=== PATIENT | female | born 1955 | race Caucasian/White ===

== ENCOUNTER 2022-02-23 10:14 | Outpatient (REF) | payer BC, SELFPAY ==
[2022-02-23 11:17] LABS: MANUAL DIFF FLAG NO
[2022-02-23 11:33] LABS: Basophils Absolute Auto 0.1 X10*3/uL (0.0-0.2); Basophils Percent Auto 0.8 % (0-2); Eosinophils Absolute Auto 0.2 X10*3/uL (0.0-0.4); Eosinophils Percent Auto 2.3 % (0-4); Hematocrit 42.4 % (37.0-47.0); Hemoglobin 14.2 g/dl (12.0-16.0); Imm Gran Abs Auto 0.02 X10*3/uL (0.00-0.03); Imm Gran Pct Auto 0.3 % (0.0-0.4); Lymphocytes Absolute Auto 2.2 X10*3/uL (1.2-4.9); Lymphocytes Percent Auto 30.6 % (20-40); Mean Corpuscular HGB Conc 33.5 g/dl (31.0-35.0); Mean Corpuscular Hemoglobin 29.4 pg (27.0-33.0); Mean Corpuscular Volume 87.8 fL (80.0-98.0); Mean Platelet Volume 11.3 fL (9.4-12.3); Monocytes Absolute Auto 0.5 X10*3/uL (0.1-1.2); Monocytes Percent Auto 6.5 % (2-11); Neutrophils Absolute Auto 4.4 x10*3/uL (2.0-8.3); Neutrophils Percent Auto 59.5 % (45-73); Platelet Count 265 X10*3/uL (160-400); Red Blood Count 4.83 X10*6/uL (4.20-5.50); Red Cell Distribution Width 12.4 % (11.0-16.0); White Blood Count 7.3 X10*3/uL (4.8-10.8)
[2022-02-23 12:17] LABS: Alanine Aminotransferase 14 U/L (0-31); Albumin Level 3.9 g/dL (3.5-5.0); Alkaline Phosphatase 86 U/L (39-117); Anion Gap 16 (12-20); Aspartate Amino Transferase 15 U/L (5-31); Bilirubin Total 0.9 mg/dL (0.0-1.0); Blood Urea Nitrogen 13 mg/dL (9-16); Carbon Dioxide 23 mmol/L (22-29); Chloride 106 mmol/L (96-108); Cholesterol 196 mg/dL; Estimated Glomerular Filt Rate > 60; Glucose Fasting 98 mg/dL (60-99); HDL Cholesterol 49 mg/dL; LDL Cholesterol Calculated 110 mg/dl; Potassium 4.5 mmol/L (3.3-5.1); Sodium 140 mmol/L (135-145); TSH reflex Free T4 2.07 uIU/mL (0.32-4.0); Total Protein 6.4 g/dL (6.5-8.0); Triglycerides 187 mg/dL; Vitamin D 25-OH Total 15.6 ng/mL (>30)
[2022-02-23 12:22] LABS: Folate 10.7 ng/mL (> or = 4.0); Vitamin B12 204 pg/mL (200-900)
== END 2022-02-23 10:15 | disposition home or self-care (01) ==
LOC: HO.10HDL 10:14
PROVIDERS: Visit Provider Nurse Practitioner Family
DX: Z76.89 Persons encountering health services in other specified circumstances (principal)
CPT/HCPCS: 36415; 80053; 80061; 82306; 82607; 82746; 84443; 85025

== ENCOUNTER 2022-06-07 11:52 | Day surgery (SDC) | payer MEDICARE, SELFPAY ==
[2022-06-01 13:55] VITALS: BMI 32.2
[2022-06-04 14:07] VITALS: BMI 29.2
--- NOTE | 2022-06-06 10:52 | HO.ANESPROP2 ---
Documented by User: Darshana Bonilla NP 06/06/22 10:54 HPI - Anesthesia Eval Consult details Narrative: 67yo F for Colonoscopy PMFSH Active Problems Active Problems: All Active Problems (Updated 04/24/22 @ 10:52 by JACKIE Kramer) Obesity (BMI 30-39.9) (Acute) Adult general medical exam (Acute) Rhinitis (Acute) Low vitamin D level (Acute) Screening for colon cancer (Acute) Post-COVID syndrome (Acute) Urinary incontinence (Acute) Prolapse of female pelvic organs (Acute) Post-menopausal (Acute) Hyperlipidemia (Acute) Past Medical History Medical History COVID-19 Encounter to establish care Family History Family History Father CKD (chronic kidney disease) Diabetes Hypertension Mother Vasculitis Diabetes Hypertension Breast cancer Surgical History Surgical History H/O dilation and curettage History of colonoscopy Social History Social History Housing: House Are you a primary client care representative to a significant other at home: No Do you presently have visiting nurse or other home services: No Patient Tobacco Use Status: Never used Tobacco Use of substances other than those prescribed or required for medical reasons: No Have you been hit, kicked, punched, or otherwise hurt by someone within the past year? If so, by whom?: No Are you DNR?: No Advance Directives: No Advance Directives Information Provided: Yes Advance Directives on File: No Recently lost weight without trying: No Nutrition Risks: No Nutritional Risk Patient : No service: No Current occupational status: employed Cognitive needs: No Hearing needs: No Vision needs: Yes (reading ) Meds Allergies Allergy/AdvReac Type Severity Reaction Status Date / Time tire dust Allergy Intermediate Hives, Uncoded 06/04/22 14:06 sneezing Home Medications Medication Instructions Recorded Confirmed Last Taken Type estradiol 1 mg tablet 1 mg PO DAILY 02/20/22 06/04/22 06/05/22 History progesterone micronized 200 mg 200 mg PO BEDTIME 02/20/22 06/04/22 06/05/22 History capsule Exam Exam Date and Time: June 06, 2022 1052 Height,Weight and Vital Signs: Height 5 ft 3 in Weight 74.843 kg Pertinent Lab Results Pertinent Lab Results: Laboratory Tests 02/23/22 02/23/22 10:22 10:22 WBC 7.3 Hgb 14.2 Hct 42.4 Plt Count 265 Sodium 140 Potassium 4.5 Chloride 106 Carbon Dioxide 23 BUN 13 Creatinine 0.81 Assessment and Plan Assessment Anesthesia Assessment: Chart Reviewed Documented by User: Mae Nuñez MD 06/07/22 12:19 [facility] Past Medical History Medical History COVID-19 Encounter to establish care Functional capacity: independent ambulation Patient : No Family History Family History Father CKD (chronic kidney disease) Diabetes Hypertension Mother Vasculitis Diabetes Hypertension Breast cancer Family history of problems with anesthesia: No Surgical History Surgical History H/O dilation and curettage History of colonoscopy History of Problems with Anesthesia: No Social History Social History Housing: House Are you a primary client care representative to a significant other at home: No Do you presently have visiting nurse or other home services: No Patient Tobacco Use Status: Never used Tobacco Use of substances other than those prescribed or required for medical reasons: No Have you been hit, kicked, punched, or otherwise hurt by someone within the past year? If so, by whom?: No Are you DNR?: No Advance Directives: No Advance Directives Information Provided: Yes Advance Directives on File: No Recently lost weight without trying: No Nutrition Risks: No Nutritional Risk Patient : No service: No Current occupational status: employed Cognitive needs: No Hearing needs: No Vision needs: Yes (reading ) Meds Allergies Allergy/AdvReac Type Severity Reaction Status Date / Time tire dust Allergy Intermediate Hives, Uncoded 06/04/22 14:06 sneezing Home Medications Medication Instructions Recorded Confirmed Last Taken Type estradiol 1 mg tablet 1 mg PO DAILY 02/20/22 06/04/22 06/05/22 History progesterone micronized 200 mg 200 mg PO BEDTIME 02/20/22 06/04/22 06/05/22 History capsule Exam Airway Mallampati Class: II TM Dist: >3cm Neck ROM: Full Heart: RRR Lungs: CTA Assessment and Plan Final Anesthetic Review Family History of Problems with Anesthesia: No History of Problems with Anesthesia: No NPO: Yes ASA Class: II Final Preanesthetic Review: No Changes in Pt Med Stat, Meds/Allgs Chart Reviewed, Consent Obtained/Reviewed and Anes Risks/Benef Reviewed Patient Risk: Low Procedure Risk: Low Anesthetic Plan Anesthetic Plan: MAC: Disposition: Standard PACU
[2022-06-07 12:05] VITALS: BP 128/64; PULSE 71; RESP 16; TEMP 37.1; O2SAT 98
[2022-06-07] MEDS: Lactated Ringers 1,000 ML 100 ML IVCONT (12:19)
--- NOTE | 2022-06-07 12:57 | MHC.SHP ---
Pre-Procedural Eval Section A Date of Service: 06/07/22 Section B Chief Complaint: personal hx of polyps Details of Present Illness: 67-year-old female with personal history of polyps, here for repeat colonoscopy. Relevant Family History (Specify if Yes): Yes Present Medications: see Short Stay Collaborative assessment Medical History: Significant History (pelvic floor prolapse) Allergies: Allergies Allergy/AdvReac Type Severity Reaction Status Date / Time tire dust Allergy Intermediate Hives, Uncoded 06/04/22 14:06 sneezing Review of Systems Review of Systems Comment: Ten point ROS negative Exam Exam Comment: Gen appear: No acute distress, well nourished HEENT: no icterus Chest: No overt resp distress Abd: soft, nontender, nondistended Psych: Stable affect, answering questions appropriately Neuro: A/Ox3 noted to move all extremities spontaneously Ext: no peripheral edema Plan Diagnosis/Plan: Unchanged I have reviewed the history and physical and performed a pertinent physical examination on my patient. No changes have occurred unless specified. Time Spent With Patient Time: Total time managing care of this patient today ____ minutes.
--- NOTE | 2022-06-07 12:59 | P.OP_ITS ---
Operative Note Operative Note Date of Service: 06/07/22 Narrative: Procedure: Colonoscopy Indication: Personal history of polyps Endoscopist: Ashley Weller MD Anesthesia Provider: Bia Lopez CRNA Anesthesia type: MAC Instrument: Olympus [id number]-[id number] Consent: Indication, risks vs benefits, and alternatives were discussed with the patient who gave written informed consent to proceed. EKG, pulse, pulse oximetry and blood pressure were monitored throughout the procedure. Please see anesthesia flowsheet. Procedure: The patient was brought to the procedure room and placed in the left lateral decubitus position. IV medications were administered by the anesthesia provider in attendance. A digital rectal exam was performed which was abnormal due to finding of hemorrhoids. The colonoscope was then inserted through the anus and advanced through the colon to the cecum at 75 cm,and terminal ileum. Appendiceal orifice and ileocecal valve were identified. Mucosa was carefully examined under high definition white light as the instrument was slowly withdrawn in a retrograde panoramic fashion. Retroflexion was performed in rectum. The procedure was not difficult. There were no immediate obvious complications. The quality of the prep was BBPS: 3+2+3 = adequate Withdrawal time 10 minutes. Limitations: No limitations. Findings: Mucosa: * Normal to cecum and terminal ileum. Protruding lesions: * 1 sessile polyp of size 4 mm in transverse colon. Cold snare polypectomy was performed. The polyp was completely removed and retrieved. * Medium external hemorrhoids without stigmata of recent bleeding. Excavated lesions: * Multiple medium and large mouthed diverticula in left sided of colon. Impression: 1. Normal colon and terminal ileum mucosa 2. Total of 1 polyp removed from transverse colon. 3. Diverticulosis 3. External hemorrhoids Recommendations: - Follow path results. - Repeat colonoscopy in 7-10 years if polyp is an adenoma.
[2022-06-07 13:44] VITALS: BP 123/63; PULSE 66; RESP 14; TEMP 36.6; O2SAT 99
[2022-06-07 14:02] VITALS: BP 137/62; PULSE 56; RESP 18; TEMP 36.1; O2SAT 99
== END 2022-06-07 14:32 | disposition home or self-care (01) ==
PROVIDERS: PCP Nurse Practitioner Family; Visit Provider Internal Medicine
PROC: 0DJD8ZZ Inspection of Lower Intestinal Tract, Via Natural or Artificial Opening Endoscopic (ICD-10-PCS; CPT 45378; principal; 2022-06-07 13:10)
DX: Z12.11 Encounter for screening for malignant neoplasm of colon (principal); Z86.010 Personal history of colon polyps; Z83.71 Family history of colonic polyps; D12.3 Benign neoplasm of transverse colon; K57.30 Diverticulosis of large intestine without perforation or abscess without bleeding; K64.4 Residual hemorrhoidal skin tags; N81.9 Female genital prolapse, unspecified; Z79.899 Other long term (current) drug therapy; Z79.818 Long term (current) use of other agents affecting estrogen receptors and estrogen levels; Z86.16 Personal history of COVID-19
CPT/HCPCS: 45385; 88305

== ENCOUNTER → 2022-06-26 11:41 | Outpatient (BNVA) | payer MEDICARE, SELFPAY | PROVIDERS: PCP Nurse Practitioner Family; Visit Provider Internal Medicine | DX: D12.6 Benign neoplasm of colon, unspecified (principal); K64.9 Unspecified hemorrhoids; K57.90 Diverticulosis of intestine, part unspecified, without perforation or abscess without bleeding; N93.9 Abnormal uterine and vaginal bleeding, unspecified | CPT/HCPCS: 99212 ==

== ENCOUNTER 2022-08-31 12:22 | Outpatient (REF) | payer MEDICARE, SELFPAY ==
[2022-08-31 15:19] LABS: Alanine Aminotransferase 12 U/L (0-31); Albumin Level 3.6 g/dL (3.5-5.0); Alkaline Phosphatase 83 U/L (39-117); Anion Gap 11 (12-20); Aspartate Amino Transferase 12 U/L (5-31); Bilirubin Total 0.8 mg/dL (0.0-1.0); Blood Urea Nitrogen 10 mg/dL (9-16); Calcium 8.7 mg/dL (8.4-10.2); Carbon Dioxide 28 mmol/L (22-29); Chloride 107 mmol/L (96-108); Cholesterol 212 mg/dL; Estimated Glomerular Filt Rate > 60; Glucose Fasting 87 mg/dL (60-99); HDL Cholesterol 51 mg/dL; LDL Cholesterol Calculated 137 mg/dl; Potassium 4.5 mmol/L (3.3-5.1); Sodium 141 mmol/L (135-145); Total Protein 5.9 g/dL (6.5-8.0); Triglycerides 123 mg/dL
== END 2022-08-31 12:23 | disposition home or self-care (01) ==
LOC: HO.10HDL 12:22
PROVIDERS: Visit Provider Nurse Practitioner Family
DX: E78.5 Hyperlipidemia, unspecified (principal)
CPT/HCPCS: 36415; 80053; 80061

== ENCOUNTER 2023-04-23 09:00 | Outpatient (REF) | payer MEDICARE, SELFPAY ==
[2023-04-23 10:40] LABS: MANUAL DIFF FLAG NO
[2023-04-23 10:47] LABS: Basophils Absolute Auto 0.1 X10*3/uL (0.0-0.2); Basophils Percent Auto 0.9 % (0-2); Eosinophils Absolute Auto 0.3 X10*3/uL (0.0-0.4); Eosinophils Percent Auto 4.3 % (0-4); Hematocrit 41.8 % (37.0-47.0); Hemoglobin 13.5 g/dl (12.0-16.0); Imm Gran Abs Auto 0.01 X10*3/uL (0.00-0.03); Imm Gran Pct Auto 0.1 % (0.0-0.4); Lymphocytes Absolute Auto 2.5 X10*3/uL (1.2-4.9); Lymphocytes Percent Auto 37.6 % (20-40); Mean Corpuscular HGB Conc 32.3 g/dl (31.0-35.0); Mean Corpuscular Hemoglobin 28.7 pg (27.0-33.0); Mean Corpuscular Volume 88.7 fL (80.0-98.0); Mean Platelet Volume 11.2 fL (9.4-12.3); Monocytes Absolute Auto 0.6 X10*3/uL (0.1-1.2); Monocytes Percent Auto 8.7 % (2-11); Neutrophils Absolute Auto 3.2 x10*3/uL (2.0-8.3); Neutrophils Percent Auto 48.4 % (45-73); Platelet Count 259 X10*3/uL (160-400); Red Blood Count 4.71 X10*6/uL (4.20-5.50); Red Cell Distribution Width 12.3 % (11.0-16.0); White Blood Count 6.7 X10*3/uL (4.8-10.8)
[2023-04-23 11:05] LABS: Alanine Aminotransferase 17 U/L (0-31); Albumin Level 3.8 g/dL (3.5-5.0); Alkaline Phosphatase 88 U/L (39-117); Anion Gap 13 (12-20); Aspartate Amino Transferase 14 U/L (5-31); Bilirubin Total 0.6 mg/dL (0.0-1.0); Blood Urea Nitrogen 14 mg/dL (9-16); Calcium 9.9 mg/dL (8.4-10.2); Carbon Dioxide 25 mmol/L (22-29); Chloride 109 mmol/L (96-108); Cholesterol 190 mg/dL (<200); Estimated Glomerular Filt Rate > 60; Glucose Fasting 86 mg/dL (60-99); HDL Cholesterol 45 mg/dL (>40); LDL Cholesterol Calculated 116 mg/dL (<100); Potassium 3.7 mmol/L (3.3-5.1); Sodium 143 mmol/L (135-145); Total Protein 6.4 g/dL (6.5-8.0); Triglycerides 149 mg/dL (<150)
[2023-04-23 11:22] LABS: TSH reflex Free T4 2.61 uIU/mL (0.32-4.0); Vitamin D 25-OH Total 66.5 ng/mL (>30)
[2023-04-23 11:29] LABS: Folate 7.2 ng/mL (> or = 4.0); Vitamin B12 286 pg/mL (200-900)
== END 2023-04-23 09:01 | disposition home or self-care (01) ==
LOC: HO.10HDL 09:00
PROVIDERS: Visit Provider Nurse Practitioner Family
DX: E78.5 Hyperlipidemia, unspecified (principal); E55.9 Vitamin D deficiency, unspecified
CPT/HCPCS: 36415; 80053; 80061; 82306; 82607; 82746; 84443; 85025

== ENCOUNTER 2023-05-27 11:28 | Outpatient (AMB) | payer MEDICARE, SELFPAY ==
[2023-05-27 11:31] VITALS: BP 122/76; PULSE 74; O2SAT 97; BMI 33.4
--- NOTE | 2023-05-27 11:31 | A.OFFPC_ITS ---
Vital Signs 3 05/27/23 11:31 Height 5 ft 2.4 in Weight 185 lb BMI 33.4 BP 122/76 Blood Pressure Location Lt brachial Position Sitting Pulse 74 Pulse Source Pulse Oximeter Pulse Oximetry (%) 97 Oxygen Delivery Method Room Air Intake Visit Reasons: PE Intake Note: Patient is here today for a physical. Marketing Consultant Required: No Allergies tire dust Allergy (Intermediate, Uncoded 05/27/23 11:47) Hives, sneezing Medication List - Last Reconciled 05/27/23 by JACKIE Feliciano atorvastatin 20 mg PO DAILY cholecalciferol (vitamin D3) 50 mcg PO DAILY Tobacco use date assessed: 05/27/23 Fall risk assessment: No Falls in past year Last assessed Fall Risk: 05/27/23 Dental Screening Dental Screen Date: 05/27/23 Did you have a dental visit in the last 12 months?: Yes Did you have a dental problem in the last 6 months where you did not have access to dental care?: No Was dental information given to patient?: Patient has dentist HPI HPI Comments 2 History of Present Illness0 Details Patient is a 67-year-old female who presents today to follow-up on hyperlipidemia.? Medical history significant for low vitamin-D level, post COVID syndrome, urinary incontinence, prolapse of female pelvic organs - followed by Urology/gynecology at [facility], and hyperlipidemia among others. Patient of Brandie Bean last seen in August. Patient reports off her hormone therapy and having nightly hotflashes. Leg swelling Has improved since off her hormone therapy. Patient has dry circular patch noted to left elbow offered steroid cream or fungal treatment for this however patient declines at this time. Patient has 1 spot of likely atinic keratosis to right thoracic back, recommended referral to dermatology however patient would like to hold off at this time. Patient reports she is up-to-date on her mammogram headache completed at [facility], also reports her bone density screening was ordered by her OBGYN at [facility] as well however she has not had this completed yet. Colonoscopy screening May 2022. 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 [facility] Medical History Encounter to establish care COVID-19 Surgical History History of colonoscopy H/O dilation and curettage Family History Father CKD (chronic kidney disease) Diabetes Hypertension Mother Vasculitis Diabetes Hypertension Breast cancer Social History Housing: House Are you a primary day care teacher to a significant other at home: No Do you presently have visiting nurse or other home services: No Patient Tobacco Use Status: Never used Tobacco e-Cigarette/Vaping Use: Never Used service: No Current occupational status: employed Cognitive needs: No Hearing needs: No Vision needs: Yes (reading ) Questionnaire PHQ-9 Over the last 2 weeks, how often have you been bothered by any of the following problems? 1. Little interest or pleasure in doing things: not at all 2. Feeling down, depressed, or hopeless: not at all 3. Trouble falling or staying asleep, or sleeping too much: not at all 4. Feeling tired or having little energy: not at all 5. Poor appetite or overeating: not at all 6. Feeling bad about yourself - or that you are a failure or have let yourself or your family down: not at all 7. Trouble concentrating on things, such as reading the newspaper or watching television: not at all 8. Moving or speaking so slowly that other people could have noticed. Or the opposite - being so fidgety or restless that you have been moving around a lot more than usual: not at all 9. Thoughts that you would be better off or of hurting yourself in some way: not at all Total score: 0 Depression Screening Interpretation: Negative Depression Screening Done: Yes 90728 - PHQ-9 Billing: Yes Source: Developed by Drs. Gabino Perez, Charlette Pitts, Adolfo Rios and colleagues, with an educational antony from [employer]. Thrive Questionnaire Date Thrive assessed: 09/07/22 I am a: Patient What is your living situation today?: I have a steady place to live Within the past 12 months, did the food you bought not last and you didn't have the money to get more?: Never true Within the past 12 months, did you worry whether your food would run out before you got money to buy more?: Never true Currently or been in a relationship where the following occur: no concerns reported AUDIT C Alcohol Use Questionnaire (AUDIT-C) 1. How often do you have a drink containing alcohol?: Monthly or less 2. How many drinks containing alcohol do you have on a typical day when you are drinking?: 1 or 2 3. How often do you have six or more drinks on one occasion?: Never Total Score: 1 Score Reviewed/Action Taken: No ALMA-7 AMB Questionnaire ALMA-7 Date ALMA - 7 assessed: 05/27/23 Feeling nervous, anxious, or on edge: 0 = Not at all Not being able to stop or control worryin = Not at all Worrying too much about different things: 0 = Not at all Trouble relaxin = Not at all Being so restless that it is hard to sit still: 0 = Not at all Becoming easily annoyed or irritable: 0 = Not at all Feeling afraid as if something awful might happen: 0 = Not at all Total ALMA-7 score (0-4 normal; 5-9 mild; 10-14 moderate; 15-21 severe): 0 Source: Developed by Drs. Gabino Perez, Charlette Pitts, Adolfo Rios and colleagues, with an educational antony from [employer]. ALMA-7 Assessment Billing ALMA-7 Assessment Tool: ALMA-7 Assessment 16498 Review of Systems Const Denies chills, Denies fatigue, Denies fever(s) and Denies poor appetite Eyes Denies no additional complaints ENT Reports Normal hearing present Card Denies chest pain, Denies syncope, Denies rapid heart rate and Denies dyspnea Resp Denies cough and Denies dyspnea GI Denies change in stool character, Denies constipation, Denies diarrhea, Denies nausea and Denies vomiting Denies urinary frequency, Denies dysuria and Denies urinary urgency Neuro Reports Normal hearing present, Denies confusion and Denies syncope Psych Denies confusion Endo Denies fatigue Physical exam (Primary Care) Vital Signs: Last Vital Signs Pulse 74 05/27/23 11:31 BP 122/76 05/27/23 11:31 Pulse Ox 97 05/27/23 11:31 Oxygen Delivery Method Room Air 05/27/23 11:31 BMI result Body Mass Index 33.4 Tobacco/Smoking Status: Tobacco use Status Tobacco use date assessed 05/27/23 05/27/23 11:32 Patient Tobacco Use Status Never used Tobacco 05/27/23 11:32 e-Cigarette/Vaping Use Never Used 05/27/23 11:32 PHQ-9: PHQ-9 Score PHQ-9: Total score 0 05/27/23 11:41 Depression Screening Interpretation: Negative Thrive Assessment: Date of Thrive Assessment Date Thrive assessed 09/07/22 05/27/23 11:32 Currently or been in a relationship where the following occur: no concerns reported Const General: No confusion Orientation/consciousness: No confusion HENMT Head: Yes normocephalic and Yes atraumatic Ears: external ears normal and TM's normal bilaterally General nose exam: Normal external nose present and Normal nasal mucous membranes and turbinates present Face and sinus: Yes normal facial exam and Yes sinuses nontender Mouth: moist mucous membranes Throat: Yes tonsils normal Eyes Conjunctivae: conjunctivae normal Sclerae: sclerae normal Pupils: Equal, round and reactive pupils present and Pupils normal by confrontation EOM: EOMs intact bilaterally Direct Ophthalmoscopy: normal light reflex Neck Neck: Yes no lymphadenopathy and Yes supple Thyroid: Thyroid normal Chest Chest palpation & inspection: normal inspection of the chest Resp Effort & Inspection: normal respiratory effort Auscultation: clear to auscultation bilaterally, no crackles, no rhonchi and no wheezes Cardio Rate: regular rate Rhythm: regular rhythm Peripheral pulses: radial pulses present and dorsalis pedis present GI Inspection: Yes normal to inspection Palpation (GI): Soft to palpation, nontender and No hepatosplenomegaly present Auscultation: normoactive bowel sounds Back/Spine/Pelvis Back/spine/pelvis image: 2 1. annular white, scaly patch noted to thoracic back Skin General skin exam: no rashes or lesions noted Neuro General: No confusion Cranial nerves: Yes Equal, round and reactive pupils present and Yes Normal hearing present Cognition (Neuro): normal cognition Gait exam (Neuro): Normal gait present Motor exam (neuro): 5/5 motor strength present throughout Deep tendon reflexes (DTR's): Right brachioradialis reflex intensity grade: 2+, Left brachioradialis reflex intensity grade: 2+, Right patellar reflex intensity grade: 2+ and Left patellar reflex intensity grade: 2+ Extrem General: No edema Assessment and Plan Assessment & Plan (1) Hyperlipidemia: Code(s): E78.5 - Hyperlipidemia, unspecified Plan: LDL improved to 116. Continue on atorvastatin 20 mg daily. Continue to follow low-cholesterol diet. (2) Adult general medical exam: Comment: Covid-19 IZs Pfizer x 4. PNA IZ declined. Code(s): Z00.00 - Encounter for general adult medical examination without abnormal findings Plan: Follow-up in 1 year (3) Actinic keratosis: Code(s): L57.0 - Actinic keratosis Plan: Recommended referral to dermatology for removal. Patient declined at this time. (4) Physical exam, annual: Code(s): Z00.00 - Encounter for general adult medical examination without abnormal findings Plan: Follow-up in 1 year or sooner if needed. Coding Level of Care Code Est Pt Prev Care 40-64y(62859) Diagnoses Hyperlipidemia E78.5 Adult general medical exam Z00.00 Actinic keratosis L57.0 Physical exam, annual Z00.00 Additional Codes ALMA-7 Assessment Billing - ALMA-7 Assessment Tool: ALMA-7 Assessment [id number] ([id number])
== END 2023-05-27 12:07 | disposition home or self-care (01) ==
PROVIDERS: PCP Nurse Practitioner Family; Visit Provider Nurse Practitioner Family
DX: Z00.00 Encounter for general adult medical examination without abnormal findings (principal); E78.5 Hyperlipidemia, unspecified; L57.0 Actinic keratosis
CPT/HCPCS: 99397

== ENCOUNTER 2024-05-27 09:56 | Outpatient (REF) | payer MEDICARE, SELFPAY ==
[2024-05-27 11:02] LABS: Hematocrit 43.8 % (37.0-47.0); Hemoglobin 14.3 g/dl (12.0-16.0); Mean Corpuscular HGB Conc 32.6 g/dl (31.0-35.0); Mean Corpuscular Hemoglobin 28.9 pg (27.0-33.0); Mean Corpuscular Volume 88.5 fL (80.0-98.0); Mean Platelet Volume 10.8 fL (9.4-12.3); Platelet Count 278 X10*3/uL (160-400); Red Blood Count 4.95 X10*6/uL (4.20-5.50); Red Cell Distribution Width 12.7 % (11.0-16.0); White Blood Count 7.3 X10*3/uL (4.8-10.8)
[2024-05-27 11:06] LABS: Appearance Urine Clear; Color Urine Yellow; Glucose Urine UA Negative (Negative); Leukocyte Esterase Urine Negative (Negative); Nitrite Urine Positive (Negative); PH 5.5 (5.0-9.0); Specific Gravity - Urine 1.015 (1.005-1.025); UMIC TRIGGER UA YES; Urine Blood Negative (Negative); Urine Ketones Negative (Negative); Urine Protein Negative (Neg-Trace)
[2024-05-27 11:10] LABS: Bacteria Urine 4+ (None Seen); Hyaline Casts Urine 0-2 /LPF (0-2); RBC Urine 0-2 /HPF (0-2); Squamous Epithelial Cell Urine 0-2 /HPF (0-2); WBC Urine 0-5 /HPF (0-5)
[2024-05-27 11:22] LABS: Alanine Aminotransferase 27 U/L (0-31); Alkaline Phosphatase 115 U/L (39-117); Anion Gap 13 (12-20); Aspartate Amino Transferase 27 U/L (5-31); Bilirubin Direct 0.2 mg/dL (0.0-0.5); Bilirubin Total 0.8 mg/dL (0.0-1.0); Blood Urea Nitrogen 11 mg/dL (9-16); Calcium 9.6 mg/dL (8.4-10.2); Carbon Dioxide 27 mmol/L (22-29); Chloride 108 mmol/L (96-108); Cholesterol 181 mg/dL (<200); Estimated Glomerular Filt Rate > 60; Glucose Random 108 mg/dL (60-115); HDL Cholesterol 51 mg/dL (>40); LDL Cholesterol Calculated 104 mg/dL (<100); Potassium 4.4 mmol/L (3.3-5.1); Sodium 144 mmol/L (135-145); Total Protein 6.6 g/dL (6.5-8.0); Triglycerides 130 mg/dL (<150)
--- OUTSIDE RECORDS SUMMARY | 2024-06-02 17:22 | XMS_ITS | Data Portability ---
Author Organization [place] - [facility],, RUTH AGUILAR MD Address [address] [address] Care Team Providers Care Theatrical Dresser Name Role Phone [facility] Primary Care Provider Assessment No assessment recorded. Plan of Treatment Reminders Order Date Submit Date Provider Last Modified By Organization Details Last Modified Time Details Appointments None recorded. Lab pap test, thinprep, cervical 2020 021 [employer] [facility], Cytopathology Service, [address] [place] [address], [address], 1 07:45:25 pap test, thinprep, cervical 2021 022 [employer] [facility], [address] [place], [address], 2 07:38:37 cytology report, thin prep, smear or scraping, cervical or vaginal 2023 024 [facility], [address] [place], [address], 4 07:22:49 Referral None recorded. Procedures fitting and insertion , pessary (PROC) 2019 020 [employer] In-Office Order, Internal Use Only DO Not Attach Compendium DO Not Attach Compendium, Do Not Delete/merge, [id number] 11:26:41 Surgeries None recorded. Imaging MAMMO, screening , digital, bilateral 2020 021 [facility] Orders, [address], [place], [address], 1 16:18:29 MAMMO, screening , digital, bilateral 2021 022 [facility] Imaging Orders, [address], [address], [place], [address], 3 15:56:30 bone density 2021 022 [facility] Imaging Orders, [address], [address], [place], [address], 4 07:35:04 MAMMO, screening , digital, bilateral - Breast Aspiratio n and/or Biopsy if needed 2023 024 [facility] Imaging Orders, [address], [address], [place], [address], 4 13:16:07 bone density 2023 024 [facility] Imaging Orders, [address], [address], [place], [address], 4 13:16:07 Medication Orders estradiol 0.01% (0.1 mg/gram) vaginal cream 2020 021 [email or web address], [place], [address], 3 10:20:50 estradiol 1 mg tablet 2020 021 [facility] [place], [address], 4 11:10:40 progester one micronize d 200 mg capsule 2020 021 [facility], [place], [address], 11:10:44 estradiol 1 mg tablet 2021 [facility], [place], [address], 11:10:40 progester one micronize d 200 mg capsule 2021 [facility], [place], [address], 11:10:44 Patient TargetsNo targets recorded. Patient Instructions Encounter Date Encounter Id Patient Instructions Last Modified By Organization Details Last Modified Time 03/07/2020 [id number] pessary: care instructions kaylin Not available 03/07/2020 11:18:56 She is here for pessary fitting for her symptomatic uterine prolapse. She is fitted with a size 5 ring pessary, it is a bit loose. After ambulating it slid down to the introitus, thoguh did not fall out. She was then fitted with a size 6 ring pessary, this fit well, did not seem to be too loose or too tight. She ambulated and used the rest room, etc. The size 6 dropped down as well. She was fitted with a size 7 ring but it was too tight for her canal and was uncomfortable, so it was removed. She is advised we could try gelhorn pessary but she is sexually active and does not want to try the gelhorn. She wants something she can manage herself. She states that her PCP already gave ehr a referral for srugery, she hasthat appointment already schedueld, and she is just going to do that. All questions answered. Not available 03/07/2020 11:18:53 05/16/2021 [id number] learning about healthy weight Not available 05/16/2021 11:48:34 She is here for annual exam, she continues to have urinary incontinence. She is doing well on the HRT and elects to continue. She had a pessary fitting last year but we could not find a ring pessary that suited her, and she declined gelhorn pessary. She was referred to [facility], they did cysto metrics and advised hysterectomy with sling repair however she declined as she wanted to use her own graft material and she didn't want to hear about that. She is using oral estradiol and micronized progesterone, and also E2 vaginal cream. note from 2020: She is here for annual exam, is doing well on HRT and elects to continue. No worsening of her incontinence, does not want any intervention at this time. She appears to be doing well. She has not had a mammogram since 01/2019, she states that she has an appointment scheduled for next month. We discussed that while on HRT she should get this annually since estradiol can accelerate breast cancer growth if present, she is aware and agrees to go for a mammogram. We discussed having her continue to take hormone replacement therapy. We discussed the need to take a progestin if a uterus is present, and the rationale behind that. We discussed the stated risks of one in 10,000 of development of a blood clot/DVT/PE that could be life threatening. We discussed the Women's Health Initiative study and the findings. We discused the PEPPI study as well. She is aware that there are conflicting reports in the medical literature concerning the risks and benefits of HRT. We disussed that women are advised by ACOG to take HRT in the lowest dose necessary, and for the shortest time necessary, to control their symptoms. After a long discussion of the potential risks and benefits of HRT she elects to continue HRT. All questions were answered. Rx for HRT is called in to the pharmacy. Call if any vaginal bleeding occurs upon initiation of HRT, or at any time postmenopausally. Not available 05/16/2021 11:51:03 05/22/2022 [id number] atrophic vaginitis: care instructions Not available 05/22/2022 12:21:52 learning about healthy weight Not available 05/22/2022 12:21:52 She is here for annual exam, is doing well on her HRT. She has some questions about the reading of dense breasts on her mammogram. note from 2020: She is here for annual exam, she continues to have urinary incontinence. She is doing well on the HRT and elects to continue. She had a pessary fitting last year but we could not find a ring pessary that suited her, and she declined gelhorn pessary. She was referred to [facility], they did cysto metrics and advised hysterectomy with sling repair however she declined as she wanted to use her own graft material and she didn't want to hear about that. She is using oral estradiol and micronized progesterone, and also E2 vaginal cream. She appears to be doing well. We discussed that she should contact her insurance to see if they cover breast ultrasound or MRI for dense breasts. IF she would like me to order the tests I will do it but I have no control over whether they cover the cost or not. She will look into it. She has not picked up rx for estradiol cream for a year, will call if wants rx. We discussed having her continue to take hormone replacement therapy. We discussed the need to take a progestin if a uterus is present, and the rationale behind that. We discussed the stated risks of one in 10,000 of development of a blood clot/DVT/PE that could be life threatening. We discussed the Women's Health Initiative study and the findings. We discused the PEPPI study as well. She is aware that there are conflicting reports in the medical literature concerning the risks and benefits of HRT. We disussed that women are advised by ACOG to take HRT in the lowest dose necessary, and for the shortest time necessary, to control their symptoms. After a long discussion of the potential risks and benefits of HRT she elects to continue HRT. All questions were answered. Rx for HRT is called in to the pharmacy. Call if any vaginal bleeding occurs upon initiation of HRT, or at any time postmenopausally. Not available 05/22/2022 12:24:30 08/30/2022 [id number] vaginal bleeding after menopause: care instructions Not available 08/30/2022 11:49:35 This visit is a phone telehealth visit. The patient consented to the visit by phone. The patient was at home at the time of the call and the provider and patient were the only people on the line. I was at [address] [facility], [address], [place], [place], at the time of the call. She had a colonoscopy in mid May, after this she had some pmb, likely from missing her HRT, it lasted a few days. She noted the bleeding stopped, but last weekend she had two days of light spotting of red blood, lasted only the two days, scant amount, then it stopped. She was sick at that time and on antibiotics for a sinus infection from the walk-in and may have missed pills. She has been taking HRT since 2012. She and I discussed this at length and she is going to try to wean off HRT as she has been on it for 10 years. If she still needs it and has significant vasomotor symptoms even on a slow wean, then she will call and we will switch her to oral provera 5 mg a day to try to diminish the possibility of having spotting when she misses a pill ro two. II she continues to have PMB then she will let me know and I will order a pelvic sonogram. The patient was agreeable to this plan. She is aware of the limitations caused by the covid restrictions, and this phone call. Face to face discussion 30 minutes kaylin Not available 08/30/2022 11:52:25 05/26/2024 [id number] atrophic vaginitis: care instructions kaylin Not available 05/26/2024 11:34:44 learning about healthy weight kaylin Not available 05/26/2024 11:34:44 She is here for annual, was doing well on her HRT, she weaned down in early 2022, and still has some night sweats, but it was too expensive with her insurance she notes. ____ Note from 2021: She is here for annual exam, is doing well on her HRT. She has some questions about the reading of dense breasts on her mammogram. _ She appears to be doing well. We discussed having her try remifemin black cohash for the night sweats. Monthly self breast exam was taught, and stressed, and is advised to call if she discovers any new mass in the breast. Not available 05/26/2024 11:35:22 Reason for Referral None Reported. Results Created Date Observation Date Name Description Value Unit Range Abnormal Flag Note LastModifiedBy Organization Detail LastModifiedTime 03/07/20 20 03/07/2020 fitti ng and inser tion, pessa ry (PROC ) ring pessary size 6 Not Available In-Off ice Order Internal Use Only DO Not Attach Compendium DO Not Attach Compendium, Do Not Delete/merge, [id number] 03/07/2020 10:36:00 05/16/20 21 05/16/2021 PAP1C ASE [id number] ThinP rep Pap, Image d: NEGAT HANH FOR SQUAM OUS INTRA EPITH ELIAL LORENA N AND PARKER RALPH . Note: The Pap test is a scree hi test with an inher ent false negat hanh rate. Autom ated presc reeni ng of all liqui d based speci mens is perfo rmed by the ThinP rep Imagi ng Syste m unles s other [facility] d. Oswald S Gayla r , CT( CP) (Case elect yamini shantaleliazar allan d 06 02 2021) ADEQU ACY: Satis facto ry Endoc ervic al/tr ansfo rmati on zone compo nent prese nt. SOURC E: ThinP rep Pap HPV IF Ascus : Refle x 16 and 18, Cervi jonathan, Image d CLINI JONATHAN INFOR MATIO N: HPV If Diagn osis of ASCUS . post menop ausal Z12.4 Not Available [facility], Cytopathology Service [address] [facility], [place], [address], 06/02/2021 13:27:39 05/22/20 22 05/22/2022 [facility] CYTOL OGY results Russ baez Name: JACQUE ROMEPaul baez : [id number] (Age: 67) Lab Acces anton #: [id number] Colle ction Date: 05/22 Acces anotn Date: 05/23 Sign Out Date: 2021 Tissu e Sourc e: 1: THINP REP FORENSIC IDENTIFICATION SPECIALIST PAP TEST, CERVI JONATHAN: Final Diagn osis: NEGAT HANH FOR INTRA EPITH ELIAL LESIO N OR MALIG RAMO . Satis facto ry for evalu ation . Endoc ervic al/tr ansfo rmati on zone prese nt. Clini jonathan Histo ry: Date of Last Menst rual Perio d: not avail able Menst rual Histo ry: Post- menop ausal Contr acept hanh Histo ry: not avail able Ancil kike Testi ng: HPV (ASCU S) Case image d by the ThinP rep Imagi ng Syste m with amanuel acevedo or marika kennedy. Clini jonathan Histo ry (othe r): Z12.4 , LPS 05/16 negat hanh, routi ne scree n, low risk, cervi jonathan, every 2 years Phone #: [phone], On-Ca ll Patho logis t: [id number] Not Available [facility] [address], [place], [address], 05/24/2022 13:48:45 06/03/20 21 06/03/2021 MAMMO , scree hi, digit al, bilat eral No observ ation record ed. [facility] Imaging Orders [address], [place], [address], 06/05/2021 11:23:54 09/21/19 23 09/20/2022 MAMMO , scree hi, digit al, bilat eral No observ ation record ed. [email or web address] [facility] [address], [place], [address], 09/24/2022 13:34:35 10/05/1910/04/2022 MAMMO , diagn ostic , digit al, unila teral No observ ation record ed. [facility] [address], [place], [address], 10/05/2022 08:25:07 03/13/20 24 03/13/2024 MAMMO , scree hi, digit al, bilat eral No observ ation record ed. [facility] [place], [address], 03/16/2024 06:31:34 Result Notes None recorded. Problems Name Problem SNOMED Code Status Onset Date Resolution Date Notes Provider Name and Address Organization Details Recorded Time Mammograp hy abnormal 595329290 Active Ruth Aguilar MD [address], [place], [address], [place] [facility], 6 14:36:21 Postmenop ausal bleeding 81106439 Active 2016 She has been taking HRT since 04/2013. She notes that she never has any vaginal bleeding unless she misses more than one day of HRT, and then the bleeding only lasts a few days. She has only had 4 bleeding episodes in the past year, each short lived and associate d with missed pills. She notes she missed a few days last week and just began spotting this morning. She is advised to have an endometri al biopsy, but she declines. She is aware we would be looking for endometri al cancer. She notes she only bleeds discretel y if she misses pills and will not have an emb at this time. 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 Ruth Aguilar MD [address], [place], [address], [place] [facility], 7 11:33:05 Benign endometri al hyperplas ia 904239708483 108 Active 2016 Ruth Aguilar MD [address], [place], [address], [place] [facility], 7 11:33:25 Atrophic vaginitis 79423997 Active 2018 Ruth Aguilar MD [address], [place], [address], [place] [facility], 9 11:27:42 Uterine prolapse 75799326 Active 2019 Ruth Aguilar MD [address], [place], [address], [place] [facility], 0 10:35:44 Menopausa l syndrome 692966288 Active Ruth Aguilar MD [address], [place], [address], [place] [facility], 6 12:00:12 Problem Notes None recorded. Procedures Surgical History Date Name Laterality Status Provider Name and Address Organization Details Recorded Time 4 Most Recent Mammogram completed Judy Bocanegra in [facility], 05/26/2024 11:12:32 7 Endometrial Biopsy completed Ruth Aguilar MD [address], [place], [address], [place] [facility], 08/09/2016 10:21:11 5 Most Recent Bone Density completed Judy Bocanegra in [facility], 07/10/2016 11:16:46 8 Other completed Judy Bocanegra in [facility], 05/06/2013 11:29:11 Imaging Results Imaging Date Name Status LastModified by [facility] Details LastModified Time 06/03/2021 MAMMO, screening, digital, bilateral completed [facility] Orders [address], [place], [address], 06/05/2021 11:23:54 09/20/2022 MAMMO, screening, digital, bilateral completed [email or web address] [facility] [address], [place], [address], 09/24/2022 13:34:35 10/04/2022 MAMMO, diagnostic, digital, unilateral completed [facility] [address], [place], [address], 10/05/2022 08:25:07 03/13/2024 MAMMO, screening, digital, bilateral completed [address] [facility] [address], [place], [address], 03/16/2024 06:31:34 Procedure Notes None recorded. Medical Equipment None Reported. Allergies No known drug allergies Medications Name Sig Start Date Stop Date Status Note LastModified by Organization Details LastModified Time azelastine 0.05 % eye drops 03/07 completed Not Available Not Available Not Available prednisone 10 mg tablet 05/16 completed Not Available Not Available Not Available atorvastati n 20 mg tablet TAKE 1 TABLET BY MOUTH EVERY DAY active Not Available Not Available No t Available azithromyci n 250 mg tablet TAKE 2 TABLETS BY MOUTH FOR 1 DAY THEN TAKE 1 TABLET BY MOUTH DAILY FOR 4 DAYS 05/16 completed Not Available Not Available Not Available benzonatate 200 mg capsule TAKE 1 CAPSULE BY MOUTH THREE TIMES A DAY FOR 10 DAYS 08/30 completed Not Available Not Available Not Available clobetasol 0.05 % topical cream APPLY TWICE DAILY TO RASH UP TO 2 WEEKS THEN REDUCE TO 3 TIMES WEEKLY FOR 4 WEEKS active Not Available Not Available No t Available acyclovir 400 mg tablet TK 1 T PO TID FOR 5 DAYS 05/16 completed Not Available Not Available Not Available sulfamethox azole 800 mg-trimetho prim 160 mg tablet TK 1 T PO BID WC FOR 3 DAYS 08/12 completed Not Available Not Available Not Available peg-electro lyte solution 420 gram oral solution 08/28 completed Not Available Not Available Not Available cefadroxil 500 mg capsule active Not Available Not Available Not Available estradiol 1 mg tablet TAKE 1 TABLET BY MOUTH EVERY DAY 05/26 completed Not Available Not Available Not Available doxycycline monohydrate 100 mg capsule TAKE 1 CAPSULE BY MOUTH TWICE A DAY FOR 10 DAYS 08/30 completed Not Available Not Available Not Available cephalexin 500 mg capsule TAKE 1 CAPSULE BY MOUTH TWICE A DAY FOR 7 DAYS 05/22 completed Not Available Not Available Not Available progesteron e micronized 200 mg capsule TAKE 1 CAPSULE BY MOUTH EVERY DAY IN THE EVENING 05/26 completed Not Available Not Available Not Available mupirocin 2 % topical ointment ELLA AA TID FOR 10 DAYS 08/28 completed Not Available Not Available Not Available ergocalcife rol (vitamin D2) 1,250 mcg (50,000 unit) capsule 05/22 completed Not Available Not Available Not Available estradiol 0.01% (0.1 mg/gram) vaginal cream Insert 0.5 g every day by vaginal route. 08/30 completed Not Available Not Available Not Available albuterol sulfate HFA 90 mcg/actuati on aerosol inhaler INHALE 2 PUFFS INTO THE LUNGS EVERY 4 HOURS NEEDED FOR COUGH OR WHEEZING OR SHORTNESS OF BREATH 05/16 completed Not Available Not Available Not Available fluticasone propionate 50 mcg/actuati on nasal spray,suspe nsion SPRAY 1 SPRAY INTO EACH NOSTRIL EVERY DAY 05/26 completed Not Available Not Available Not Available amoxicillin 875 mg-potassiu m clavulanate 125 mg tablet TAKE 1 TABLET BY MOUTH TWICE A DAY FOR 7 DAYS 05/22 completed Not Available Not Available Not Available tobramycin 0.3 %-dexametha sone 0.1 % eye drops,suspe nsion active Not Available Not Available Not Available nitrofurant oin monohydrate /macrocryst als 100 mg capsule TK 1 C PO BID 08/12 completed Not Available Not Available Not Available peg 3350-electr olytes 236 gram-22.74 gram-6.74 gram-5.86 gram solution MIX AND DRINK 240ML EVERY 10 MINUTES DIRECTED 05/22 completed Not Available Not Available Not Available Vitamin D3 50 mcg (2,000 unit) tablet TAKE 1 TABLET BY MOUTH EVERY DAY active Not Available Not Available No t Available Virtussin AC 10 mg-100 mg/5 mL oral liquid TAKE 5 ML BY MOUTH THREE TIMES DAILY NEEDED FOR COUGH FOR UP TO 10 DAYS 05/16 completed Not Available Not Available Not Available Vitals Date Recorded Body height Body mass index (BMI) Body weight Body temperature Heart rate Systolic blood pressure Diastolic blood pressure Provider Name and Address Organization Details Last Updated DateTime 0 157.48 cm 31.3 kg/m2 86843.7 3 g 97.6 [degF] 66 /min 114 mm[Hg] 53 mm[Hg] Stephanie Bocanegra in [facility], 0 10:25:00 Date Recorded Body weight Body mass index (BMI) Body height Body temperature Heart rate Systolic blood pressure Diastolic blood pressure Provider Name and Address Organization Details Last Updated DateTime 1 59291.8 5 g 32.4 kg/m2 157.48 cm 97.3 [degF] 74 /min 136 mm[Hg] 56 mm[Hg] Judy Bocanegra in [facility], 1 11:11:39 Date Recorded Body weight Body mass index (BMI) Body height Heart rate Systolic blood pressure Diastolic blood pressure Provider Name and Address Organization Details Last Updated DateTime 2 17366.0 3 g 32.7 kg/m2 157.48 cm 80 /min 122 mm[Hg] 55 mm[Hg] Stephanie Bocanegra in [facility], 2 11:16:09 Date Recorded Body height Provider Name an d Address Organization Details Last Updated DateTime 08/30/2022 157.48 cm Stephanie goss in [facility], 08/30/2022 10:19:56 Date Recorded Body weight Body mass index (BMI) Body height Heart rate Systolic blood pressure Diastolic blood pressure Provider Name and Address Organization Details Last Updated DateTime 4 79110.7 4 g 32.9 kg/m2 160.02 cm 79 /min 139 mm[Hg] 75 mm[Hg] Judy Bocanegra in [facility], 4 11:09:00 Social History Question Answer Notes LastModified by Organizat ion Details LastModified Time Tobacco Smoking Status Never Smoker Not Available [employer] 04/26/2020 03:19:43 What Is Your Level Of Alcohol Consumption? Occasional [id number] Information not available 04/26/2020 How Many Years Have You Consumed Alcohol? 40 Information not available 05/16/2021 What Is Your Level Of Caffeine Consumption? None [id number] Information not available 04/26/2020 In The 14 Days Before Symptom Onset, Have You Had Close Contact With A Laboratory-confir med COVID-19 While That Case Was Ill? No Information not available 05/16/2021 In The 14 Days Before Symptom Onset, Have You Had Close Contact With A Person Who Is Under Investigation For COVID-19 While That Person Was Ill? No Information not available 05/16/2021 Have You Been To An Area Known To Be High Risk For COVID-19? No Information not available 05/16/2021 Are You Currently Employed? Yes Information not available 05/16/2021 What Type Of Diet Are You Following? REGULAR [id number] Information not available 04/26/2020 Which Illicit Or Recreational Drugs Have You Used? No [id number] Information not available 04/26/2020 Do You Reside In Or Have You Traveled To An Area Where Ebola Virus Transmission Is Active? No [id number] Information not available 04/26/2020 Do You Or Have You Ever Used E-cigarettes Or Vape? Never Used Electronic Cigarettes [id number] Information not available 04/26/2020 Education 4 Year College Informatio n not available 05/06/2013 What Is The Highest Grade Or Level Of School You Have Completed Or The Highest Degree You Have Received? [id number] Information not available 05/16/2021 What Is Your Occupation? Retired.... Information not available 05/26/2024 How Many Days In The Past Year Have You Had A Heavy Drinking Consumption (4+ Female, 5+ Male)? 0 Information no t available 07/10/2016 Are There Any Guns Present In Your Home? No Information not available 05/16/2021 High Number Of Sexual Partners No Information not available 07/10/2016 To Which Gender Do You Self-identify? Female Information not available 07/10/2016 Marital Status Informatio n not available 05/06/2013 What Was The Date Of Your Most Recent Tobacco Screening? 05/26/2024 Information not available 05/26/2024 What Is Your Relationship Status? Information not available 05/16/2021 Are You Sexually Active? Yes [id number] Information not available 04/26/2020 Do You Or Have You Ever Used Smokeless Tobacco? Never Used Smokeless Tobacco [id number] Information not available 04/26/2020 How Much Tobacco Do You Smoke? No [id number] Information not available 04/26/2020 General Stress Level Medium Information not available 07/06/2015 Do You Feel Stressed (tense, Restless, Nervous, Or Anxious, Or Unable To Sleep At Night)? [id number] Information not available 05/16/2021 Do You Use Any Illicit Or Recreational Drugs? No Information not available 05/16/2021 How Many Years Have You Smoked Tobacco? 0 [id number] Information not available 04/26/2020 Have You Recently (within The Last 12 Weeks, Or During A Current ) Traveled To Or Lived In A Zika-affected Area? No Information not available 07/10/2016 Do You Or Have You Ever Used Any Other Forms Of Tobacco Or Nicotine? No Information not available 05/16/2021 How Many Days In The Past Year Have You Consumed 4 Or More Drinks? 0 Information no t available 05/16/2021 Sex: Female Functional Status Question Answer Note LastModified by Organization D etails LastModified Time What is your exercise level? Moderate [id number] Information not available 04/26/2020 Mental Status None recorded. Family History Relationship Description Onset Age of this Age Resolved Age Notes LastModified by Organization Details LastModified Time Father Diabetes mellitus Not available 06/24 11:34:17 Father Hypertensive disorder Not available 06/24 11:34:17 Father Problem benign polyps Not available 07/06/2015 11:34:17 Father Problem skin cancer Not available 07/06/2015 11:34:17 Father Problem stage 4 kidney diseas e Not available 07/06/2015 11:34:17 Mother Hypertensive disorder Not available 06/24 11:34:17 Mother Diabetes mellitus Not available 06/24 11:34:17 Mother Malignant neoplastic disease 77 dcis, Not available 06/24 11:34:17 Medical History Condition Response Anesthesia complications N High Blood Pressure N Candidate for MyRisk panel N Autoimmune Condition N Thyroid Problems N Kidney or Bladder Problems N GI Problems N Lung Disease N Depression N Defects or Inherited Disease N History of Ovarian Cancer N Anemia N History of Breast Cancer N RENU exposure N BRCA testing in past N Osteopenia N Psychiatric Illness N Anxiety Disorder N Diabetes N Arthritis N Headaches or Migraines N Infertility N Asthma N History of Cancer N Endometriosis N Hepatitis N Heart Disease N Hypertension N Osteoporosis N Gynecological History Statement/Question Response If Post Menopausal, Age at Menopause 56 Age at Menarche 14 Most Recent Mammogram 03/13/2024 Age at First Child 30 Most Recent Bone Density 09/01/2014 Hormone Replacement Therapy Y Obstetrics History GPAL:G 3 P 3 0 0 3 Type Value Full Term 3 Living 3 Total 3 Immunizations Vaccine Type Date Status Provider Name and Address Organization Details Recorded Time COVID-19, mRNA, LNP-S, PF, 30 mcg/0.3 mL dose 10/22/2020 completed Judy Meczywor null, [place] - [facility], 05/26/2024 11:09:43 COVID-19, mRNA, LNP-S, PF, 30 mcg/0.3 mL dose 11/12/2020 completed Judy Meczywor null, [place] - [facility], 05/26/2024 11:09:43 COVID-19, mRNA, LNP-S, PF, 30 mcg/0.3 mL dose 06/07/2021 completed Judy Meczywor null, [place] - [facility], 05/26/2024 11:09:43 COVID-19, mRNA, LNP-S, bivalent, PF, 30 mcg/0.3 mL dose 04/14/2022 completed Judy Meczywor null, [place] - [facility], 05/26/2024 11:09:43 Tdap 03/10/2015 completed Judy Meczywor null, [place] - [facility], 05/26/2024 11:09:43 Tdap 03/24/2015 completed Judy dela cruz [place] - [facility], 05/26/2024 11:09:43 Past Encounters Encounter ID Performer Location Encounter Start Date Encounter Closed Date Diagnosis/Indication Diagnosis SNOMED-CT Code Diagnosis ICD10 Code [id number] Cherry Burrell RUTH AGUILAR MD [address] [place] [address] 05/06/2013 10:58:55 05/06/2013 12:03:44 Menopausal syndrome 848197454 [id number] RUTH AGUILAR MD [address] [facility] [place] [address] 06/03/2013 11:11:02 06/04/2013 15:32:44 Menopausal syndrome 613108560 Screening mammography 24 315592 [id number] RUTH AGUILAR MD [address] [facility] [place] [address] 07/03/2013 11:31:41 07/03/2013 14:55:34 Specialized medical examination 48893323 Screening for malignant neoplasm of rectum 530203122 Screening mammography 24 955883 Menopausal syndrome 1237 73011 [id number] RUTH AGUILAR MD [address] [facility] [place] [address] 07/06/2014 11:05:49 07/06/2014 13:34:49 Specialized medical examination 13018565 Screening for malignant neoplasm of rectum 810717895 Screening mammography 24 870315 Menopausal syndrome 1237 03444 [id number] MD RUTH Neff MD [address] [facility] [place] [address] 07/06/2015 10:56:29 07/06/2015 12:01:41 Specialized medical examination 24573492 Z01.419 Screening mammography 24 264687 Z12.31 Menopausal syndrome 1237 37982 N95.9 [id number] MD RUTH Neff MD [address] [place] [address] 07/10/2016 10:57:37 07/10/2016 13:40:52 Menopausal syndrome 582331256 N95.1 Specialize d medical examination 39879879 Z01.419 Screening for malignant neoplasm of rectum 954330376 Z12.12 Screening mammography 24 257834 Z12.31 [id number] MD RUTH Neff MD [address] [place] [address],[address] [address] 08/09/2016 09:22:38 08/09/2016 11:14:51 Postmenopausal bleeding 52015504 N95.0 [id number] MD RUTH Neff MD [address] [place] [address],[address] [address] 08/14/2016 11:02:10 08/14/2016 13:12:42 Polyp of corpus uteri 35191616 N84.0 Benign end ometrial hyperplasia 0116145844 82634 N85.01 Postmenopa usal bleeding 44345110 N95.0 [id number] MD RUTH Neff MD [address] [place] [address],[address] [address] 08/28/2016 10:19:40 08/28/2016 16:02:36 Postmenopausal bleeding 48839510 N95.0 Polyp of corpus uteri 11 693879 N84.0 Benign end ometrial hyperplasia 7039477512 35959 N85.01 [id number] MD RUTH Neff MD [address] [place] [address] 09/14/2016 11:18:01 09/14/2016 13:02:59 Polyp of corpus uteri 93371615 N84.0 Benign end ometrial hyperplasia 2139432875 88448 N85.01 Postmenopa usal bleeding 90431965 N95.0 [id number] MD RUTH Neff MD [address] [place] [address] 07/11/2017 11:13:40 07/11/2017 12:58:58 Menopausal syndrome 712926029 N95.1 Specialize d medical examination 18028393 Z01.419 Screening mammography 24 768492 Z12.31 [id number] MD RUTH Neff MD [address] [place] [address] 08/12/2018 11:01:08 08/12/2018 12:59:53 Menopausal syndrome 919973149 N95.1 Specialize d medical examination 86132334 Z01.419 Screening for malignant neoplasm of rectum 877161736 Z12.12 Screening mammography 24 117245 Z12.31 Atrophic vaginitis 06879 000 N95.2 [id number] MD RUTH Neff MD [address] [place] [address], [place] [address] 09/09/2019 10:20:22 09/09/2019 10:51:41 Specialized medical examination 26937199 Z01.419 Screening mammography 24 548050 Z12.31 Menopausal syndrome 1237 58299 N95.1 [id number] MD RUTH Neff MD [address] [place] [address] [place] [address] 12/23/2019 11:02:24 12/24/2019 08:15:00 Acute lower urinary tract infection 374359042 R30.0 Cystocele 273284616 N81. 11 Uterine prolapse 6290517 5 N81.2 Atrophic vaginitis 09118 000 N95.2 [id number] MD RUTH Neff MD [address] [place] [address] [place] [address] 03/07/2020 10:20:36 03/07/2020 12:05:42 Uterine prolapse 03562219 N81.2 [id number] MD RUTH Neff MD [address] [place] [address] [place] [address] 05/16/2021 11:07:11 05/16/2021 12:02:33 Specialized medical examination 93499436 Z01.419 Screening mammography 24 552933 Z12.31 Menopausal syndrome 1237 48412 N95.1 Atrophic vaginitis 39132 000 N95.2 [id number] MD RUTH Neff MD [address] [place] [address] [place] [address] 05/22/2022 11:03:50 05/22/2022 13:01:50 Screening for malignant neoplasm of cervix 879589680 Z12.4 Screening mammography 24 104108 Z12.31 Screening for osteoporosis 719900611 N95.8 Menopausal syndrome 1237 39036 N95.1 [id number] MD RUTH Neff MD [address] [facility] [place] [address] 08/30/2022 10:18:32 08/30/2022 13:35:42 Postmenopausal bleeding 59611723 N95.0 [id number] MD RUTH Neff MD [address] [facility] [place] [address] 05/26/2024 11:04:59 05/26/2024 13:16:06 Screening for malignant neoplasm of cervix 464589094 Z12.4 Screening mammography 24 441754 Z12.31 Screening for osteoporosis 667458597 N95.8 Health Concerns Section Related Observation LastModified by Organization Detai ls LastModified Time None Recorded Concern Status LastModified by Organization Details LastModified Time None Recorded Advance Directives Directive None Recorded Payers Encounter Date Sequence Insurance Name Policy Number Policy Agustin Covered Member ID Agustin Member ID Guarantor Name 03/07/2020 1 [facility] [employer] [facility] [place] [place] [id number]a [place] [id number] [place] 05/16/2021 1 [facility] [place] [place] [id number] Hoa [place] [id number] [place]a [place] 05/22/2022 1 [facility] (MEDICARE REPLACEMENT PPO) [id number] Hoa [place] [id number] [place]a [place] 08/30/2022 1 [place] PPO) [id number] Hoa [place] [id number] [place]a [place] 05/26/2024 1 [employer]AC[place] PPO) [id number] Hoa S[place] [id number] [place]a [place] Notes Date Note Type Note Provider Name and Address Organization Details Recorded Time 03/07/2020 text/html She is here for pessary fitting for her symptomatic uterine prolapse. Ruth Aguilar MD [address] [facility],[address], [place], [address], [facility] - [facility], 03/07/2020 11:19:28 05/16/2021 text/html She is here for annual exam, she continues to have urinary incontinence. She is doing well on the HRT and elects to continue. She had a pessary fitting last year but we could not find a ring pessary that suited her, and she declined gelhorn pessary. She was referred to [facility], they did cysto metrics and advised hysterectomy with sling repair however she declined as she wanted to use her own graft material and she didn't want to hear about that. She is using oral estradiol and micronized progesterone, and also E2 vaginal cream. note from 2019: She is here for annual exam, is doing well on HRT and elects to continue.No worsening of her incontinence, does not want any intervention at this time. Ruth Aguilar MD [address], [place], [address], [facility], 05/16/2021 11:55:04 05/22/2022 text/html She is here for annual exam, is doing well on her HRT. She has some questions about the reading of dense breasts on her mammogram. ____ note from 2020: She is here for annual exam, she continues to have urinary incontinence. She is doing well on the HRT and elects to continue.She had a pessary fitting last year but we could not find a ring pessary that suited her, and she declined gelhorn pessary. She was referred to [facility], they did cysto metrics and advised hysterectomy with sling repair however she declined as she wanted to use her own graft material and she didn't want to hear about that. She is using oral estradiol and micronized progesterone, and also E2 vaginal cream. Ruth Aguilar MD [address], [place], [address], [facility] - [facility], 05/22/2022 12:24:50 08/30/2022 text/html This visit is a phone telehealth visit. The patient consented to the visit by phone.The patient was at home at the time of the call and the provider and patient were the only people on the line.I was at [address] [facility], [address], [place], at the time of the call. She had a colonoscopy in mid May, after this she had some pmb, likely from missing her HRT, it lasted a few days. She noted the bleeding stopped, but last weekend she had two days of light spotting of red blood, lasted only the two days, scant amount, then it stopped. She was sick at that time and on antibiotics for a sinus infection from the walk in adn may have missed pills. She has been taking HRT since 2012. Ruth Aguilar MD [address] [facility],[address], [place], [address], [facility], 08/30/2022 11:52:41 05/26/2024 text/html She is here for annual, was doing well on her HRT, she weaned down in early 2022, and still has some night sweats, but it was too expensive with her insurance she notes. Note from 2021: She is here for annual exam, is doing well on her HRT. She has some questions about the reading of dense breasts on her mammogram. Ruth Aguilar MD [address] [facility],[address], [place], [address], [facility], 05/26/2024 11:36:36 OBGyn Episode No OBEpisode recorded.
--- OUTSIDE RECORDS SUMMARY | 2024-06-02 17:22 | XMS_ITS | Continuity of Care Document ---
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 Plan of Treatment Reminders Order Date Submit Date Provider Last Modified By Organization Details Last Modified Time Details Appointments None recorded. Lab cytology report, thin prep, smear or scraping, cervical or vaginal 2023 024 [email or web address] [facility], [address] [place], [address], 07:22:49 Referral None recorded. Procedures None recorded. Surgeries None recorded. Imaging MAMMO, screening, digital, bilateral - Breast Aspiration and/or Biopsy if needed 2023 024 [facility], [address], [address], [place], [address], 13:16:07 bone density 2023 024 [facility], [address], [address], [place], [address], 4 13:16:07 Medication Orders None recorded. Patient TargetsNo targets recorded. Patient Instructions Encounter Date Encounter Id Patient Instructions Last Modified By Organization Details Last Modified Time 05/26/2024 [id number] atrophic vaginitis: care instructions Not available 05/26/2024 11:34:44 learning about healthy weight Not available 05/26/2024 11:34:44 She is here [...] 05/26/2024 11:35:22 Reason for Referral None Reported. Problems Name Problem SNOMED Code Status Onset Date Resolution Date Notes Provider Name and Address Organization Details Recorded Time Mammograp hy abnormal 045665075 Active Ruth Vogel MD [address], [place], [address], [place] - [facility], 6 14:36:21 Postmenop ausal bleeding 69012984 Active 2016 She has been taking HRT [...] have an emb at this time. Ruth Vogel MD [address], [place], [address], [place] - [facility], 7 13:02:41 Polyp of corpus uteri 50061906 Active 2016 Ruth Vogel MD [address], [place], [address], [place] - [facility], 7 11:33:05 Benign endometri al hyperplas ia 481144347606 108 Active 2016 Ruth Vogel MD [address], [place], [address], [place] - [facility], 7 11:33:25 Atrophic vaginitis 59771042 Active 2018 Ruth Vogel MD [address], [place], [address], [place] - [facility], 9 11:27:42 Uterine prolapse 96883929 Active 2019 Ruth Vogel MD [address], [place], [address], [place] - [facility], 0 10:35:44 Menopausa l syndrome 529598388 Active Ruth Vogel MD [address], [place], [address], [place] - [facility], 6 12:00:12 Problem Notes None recorded. Procedures Surgical History Date Name Laterality Status Provider Name and Address Organization Details Recorded Time 4 Most Recent Mammogram completed Judy Chambers [place] - [facility], 05/26/2024 11:12:32 7 Endometrial Biopsy completed Ruth Vogel MD [address], [place], [address], [place] - [facility], 08/09/2016 10:21:11 5 Most Recent Bone Density completed Judy Chambers [place] - [facility], 07/10/2016 11:16:46 8 Other completed Judy Chambers [place] - [facility], 05/06/2013 11:29:11 Imaging Results None recorded. Procedure Notes None recorded. Medical Equipment None [...] Available Not Available Vitals Date Recorded Body weight Body mass index (BMI) Body height Heart rate Systolic blood pressure Diastolic blood pressure Provider Name and Address Organization Details Last Updated DateTime 4 12377.7 4 g 32.9 kg/m2 160.02 cm 79 /min 139 mm[Hg] 75 mm[Hg] Judy Chambers [place] - [facility], 4 11:09:00 Social History Question Answer Notes LastModified by Organizat ion Details LastModified Time Tobacco Smoking Status Never Smoker Not Available [facility] 04/26/2020 03:19:43 What Is Your Level Of Alcohol Consumption? Occasional [id number] Information not available 04/26/2020 How Many Years Have You Consumed Alcohol? 40 Information not available 05/16/2021 What Is Your Level Of Caffeine Consumption? None [id number] Information not available 04/26/2020 In The 14 [...] Type Of Diet Are You Following? REGULAR [id number] Information not available 04/26/2020 Which Illicit Or Recreational Drugs Have You Used? No [id number] Information not available 04/26/2020 Do You Reside In Or Have You Traveled To An Area Where Ebola Virus Transmission Is Active? No [id number] Information not available 04/26/2020 Do You Or Have You Ever Used E-cigarettes Or Vape? Never Used Electronic Cigarettes [id number] Information not available 04/26/2020 Education 4 Year College Informatio n not available 05/06/2013 What Is The Highest Grade Or Level Of School You Have Completed Or The Highest Degree You Have Received? [id number] Information not available 05/16/2021 What Is Your [...] available 05/16/2021 Are You Sexually Active? Yes [id number] Information not available 04/26/2020 Do You Or Have You Ever Used Smokeless Tobacco? Never Used Smokeless Tobacco [id number] Information not available 04/26/2020 How Much Tobacco Do You Smoke? No [id number] Information not available 04/26/2020 General Stress Level Medium Information not available 07/06/2015 Do You Feel Stressed (tense, Restless, Nervous, Or Anxious, Or Unable To Sleep At Night)? [id number] Information not available 05/16/2021 Do You Use Any Illicit Or Recreational Drugs? No Information not available 05/16/2021 How Many Years Have You Smoked Tobacco? 0 [id number] Information not available 04/26/2020 Have You Recently [...] Time What is your exercise level? Moderate [id number] Information not available 04/26/2020 Mental Status None [...] Problems N Kidney or Bladder Problems N Depression N GI Problems N Lung Disease N Defects or Inherited Disease N Anemia N History of Ovarian Cancer N History of Breast Cancer N RENU exposure N BRCA testing in past N Osteopenia N Psychiatric Illness N Diabetes N Anxiety Disorder N Arthritis N Headaches or Migraines N [...] Total 3 Immunizations Vaccine Type Date Status Note Provider Nam e and Address Organization Details Recorded Time COVID-19, mRNA, LNP-S, PF, 30 mcg/0.3 mL dose 10/22/2020 completed Judy Meczywor lanie [place] - [facility], 05/26/2024 11:09:43 COVID-19, mRNA, LNP-S, PF, 30 mcg/0.3 mL dose 11/12/2020 completed Judy Meczywor null [place] - [facility], 05/26/2024 11:09:43 COVID-19, mRNA, LNP-S, PF, 30 mcg/0.3 mL dose 06/07/2021 completed Judy Meczywor null [place] - [facility], 05/26/2024 11:09:43 COVID-19, mRNA, LNP-S, bivalent, PF, 30 mcg/0.3 mL dose 04/14/2022 completed Judy Meczywor null [place] - [facility], 05/26/2024 11:09:43 Tdap 03/10/2015 completed Judy Meczywor lanie [place] - [facility] in [facility], 05/26/2024 11:09:43 Tdap 03/24/2015 completed Judy dela cruz [place] - [facility], 05/26/2024 11:09:43 Past Encounters Encounter ID Performer Location Encounter Start Date Encounter Closed Date Diagnosis/Indication Diagnosis SNOMED-CT Code Diagnosis ICD10 Code [id number] MD RUTH Neff MD [address] [facility],[address] [place] [address] 05/26/2024 11:04:59 05/26/2024 13:16:06 Screening for malignant neoplasm of cervix 100859138 Z12.4 Screening mammography 24 655680 Z12.31 Screening for osteoporosis 638921997 N95.8 Health Concerns Section Related Observation LastModified by Organization Detai ls LastModified Time None Recorded Concern Status LastModified by Organization Details LastModified Time None Recorded Payers Encounter Date Sequence Insurance Name Policy Number Policy Agustin Covered Member ID Agustin Member ID Guarantor Name 05/26/2024 1 [facility] (MEDICARE REPLACEMENT PPO) [id number] Hoa Jayleendarrius [id number] Hoa Jayleendarrius Notes Date Note Type Note Provider Name and Address Organization Details Recorded Time 05/26/2024 text/html She is here for annual, [...] of dense breasts on her mammogram. Ruth Vogel MD [address], [place], [address], [place] - [facility], 05/26/2024 11:36:36 OBGyn Episode No OBEpisode recorded.
== END 2024-05-27 09:57 | disposition home or self-care (01) ==
LOC: HO.10HDL 09:56
PROVIDERS: Visit Provider Internal Medicine
DX: E78.5 Hyperlipidemia, unspecified (principal)
CPT/HCPCS: 36415; 80048; 80061; 80076; 81001; 81003; 84443; 85027

== ENCOUNTER 2024-05-28 10:31 | Outpatient (AMB) | payer MEDICARE, SELFPAY ==
--- NOTE | 2024-05-28 10:34 | MHC.PC.OV ---
Vital Signs 05/28/24 10:35 Height 5 ft 2 in Weight 186 lb BMI 34.0 BP 120/72 Blood Pressure Location Lt brachial Position Sitting Intake Visit Reasons: pe Intake Note: Patient is here today for a physical. Pt decline flu shot today. 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 Accompanied by: Self / Same As Patient Allergies tire dust Allergy (Intermediate, Uncoded 05/28/24 11:43) Hives, sneezing Medication List - Last Reconciled 05/28/24 by Matias Augustin MD atorvastatin 20 mg PO DAILY cholecalciferol (vitamin D3) 50 mcg PO DAILY Tobacco use date assessed: 05/28/24 Fall risk assessment: No Falls in past year Last assessed Fall Risk: 05/28/24 Dental Screening Dental Screen Date: 05/28/24 Did you have a dental visit in the last 12 months?: Yes Did you have a dental problem in the last 6 months where you did not have access to dental care?: No Was dental information given to patient?: Patient has dentist HPI HPI Comments History of Present Illness Details 69-year-old female presents to the office requesting an annual physical. In addition, patient would like to discuss the rash around her eyes. She has had hyperpigmented areas around her eyes for a few months. She made an appointment with a biomed tech who diagnosed her condition as melasma and gave medications from a compounding pharmacy. Patient reports that there is a new insert installed in her fireplace at home. Subsequent to the installation, she reports erythematous rash around the eyes at the borders of the hyperpigmented areas. She is hesitating to use the medications from the compounding pharmacy. In addition, patient has symptoms of urinary incontinence, joint pains and hot flashes. She had an OBGYN appointment recently. Patient was referred to a urogynecologist and has declined any surgical options. Patient was at the lab getting routine blood work done. She would like to know her LDL levels. [facility] Medical History (Updated 05/27/23 @ 12:12 by JACKIE Feliciano) Encounter to establish care COVID-19 Surgical History (Updated 05/28/24 @ 11:50 by Matias Augustin MD) History of colonoscopy (~06/07/22) H/O dilation and curettage Family History Father CKD (chronic kidney disease) Diabetes Hypertension Mother Vasculitis Diabetes Hypertension Breast cancer Social History Housing: House Are you a primary account executive healthcare to a significant other at home: No Do you presently have visiting nurse or other home services: No Alcohol intake: current Alcohol intake frequency: holidays/special occasions only Patient Tobacco Use Status: Never used Tobacco e-Cigarette/Vaping Use: Never Used Second Hand Smoke Exposure: No service: No Current occupational status: employed Cognitive needs: No Hearing needs: No Vision needs: Yes (reading ) Questionnaire PHQ-9 Over the last 2 weeks, how often have you been bothered by any of the following problems? 1. Little interest or pleasure in doing things: not at all 2. Feeling down, depressed, or hopeless: not at all 3. Trouble falling or staying asleep, or sleeping too much: not at all 4. Feeling tired or having little energy: not at all 5. Poor appetite or overeating: not at all 6. Feeling bad about yourself - or that you are a failure or have let yourself or your family down: not at all 7. Trouble concentrating on things, such as reading the newspaper or watching television: not at all 8. Moving or speaking so slowly that other people could have noticed. Or the opposite - being so fidgety or restless that you have been moving around a lot more than usual: not at all 9. Thoughts that you would be better off or of hurting yourself in some way: not at all Total score: 0 Depression Screening Interpretation: Negative Depression Screening Done: Yes Source: Developed by Drs. Gabino Perez, Charlette Pitts, Adolof Rios and colleagues, with an educational antony from [employer]. Thrive Questionnaire Date Thrive assessed: 05/28/24 I am a: Patient What is your living situation today?: I have a steady place to live Within the past 12 months, did the food you bought not last and you didn't have the money to get more?: Never true Within the past 12 months, did you worry whether your food would run out before you got money to buy more?: Never true Do you have trouble paying for medicines?: No Do you have trouble getting transportation to medical appointments?: No Do you have trouble paying your heating and electricity bill?: No Do you have trouble taking care of your child, family member or friend?: No Do you have trouble with day-to-day activities such as bathing, preparing meals, shopping, managing finances, etc.?: No Are you currently unemployed and looking for a job?: No Are you interested in more education?: No Please select the resources that you would like help with: None Currently or been in a relationship where the following occur: No concerns reported THRIVE Score: 0 AUDIT C Alcohol Use Questionnaire (AUDIT-C) 1. How often do you have a drink containing alcohol?: Monthly or less 2. How many drinks containing alcohol do you have on a typical day when you are drinking?: 1 or 2 3. How often do you have six or more drinks on one occasion?: Never Total Score: 1 ALMA-7 AMB Questionnaire ALMA-7 Date ALMA - 7 assessed: 05/28/24 Feeling nervous, anxious, or on edge: 0 = Not at all Not being able to stop or control worryin = Not at all Worrying too much about different things: 0 = Not at all Trouble relaxin = Not at all Being so restless that it is hard to sit still: 0 = Not at all Becoming easily annoyed or irritable: 0 = Not at all Feeling afraid as if something awful might happen: 0 = Not at all Total ALMA-7 score (0-4 normal; 5-9 mild; 10-14 moderate; 15-21 severe): 0 Source: Developed by Drs. Gabino Perez, Charlette Pitts, Adolfo Rios and colleagues, with an educational antony from [employer]. Physical exam (Primary Care) Vital Signs: Last Vital Signs BP 120/72 05/28/24 10:35 BMI result Body Mass Index 34.0 Tobacco/Smoking Status: Tobacco use Status Tobacco use date assessed 05/28/24 05/28/24 10:42 Patient Tobacco Use Status Never used Tobacco 05/28/24 10:42 e-Cigarette/Vaping Use Never Used 05/28/24 10:42 PHQ-9: PHQ-9 Score PHQ-9: Total score 0 05/28/24 10:42 Depression Screening Interpretation: Negative Thrive Assessment: Date of Thrive Assessment Date Thrive assessed 05/28/24 05/28/24 10:42 Currently or been in a relationship where the following occur: No concerns reported Const General: cooperative and healthy appearing Nutritional Appearance: well nourished Orientation/consciousness: patient oriented x3 Limitations: no limitations HENMT Head: Yes normal to inspection Eyes General: appearance normal, both eyes and all related structures Neck Neck: Yes normal visual inspection Chest Chest palpation & inspection: normal palpation of entire chest wall Resp Effort & Inspection: normal respiratory effort Skin Other: Periorbital area: Bilateral: Hyperpigmented area. Surrounding the hyperpigmented area are raised erythematous areas. Mostly papular rash. Neuro General: patient oriented x3 Coding Level of Care Code Est Pt Prev Care >65y(15557) Diagnoses Hyperlipidemia E78.5 Irritant dermatitis L24.9 Physical exam, annual Z00.00 Assessment & Plan Assessment & Plan (1) Hyperlipidemia: Code(s): E78.5 - Hyperlipidemia, unspecified Category: Medical Plan: Fasting blood work reviewed. Continue atorvastatin at same dosage. (2) Irritant dermatitis: Code(s): L24.9 - Irritant contact dermatitis, unspecified cause Plan: The irritation could be from the new insert installed in her home. Patient was encouraged to use the medication given by the biomed tech. (3) Physical exam, annual: Code(s): Z00.00 - Encounter for general adult medical examination without abnormal findings Plan: Blood work reviewed. Up-to-date on mammogram and colonoscopy. Patient declined flu vaccination.
[2024-05-28 10:35] VITALS: BP 120/72; BMI 34.0
== END 2024-05-28 11:31 | disposition home or self-care (01) ==
PROVIDERS: PCP Internal Medicine; Visit Provider Internal Medicine
DX: E78.5 Hyperlipidemia, unspecified (principal); L24.9 Irritant contact dermatitis, unspecified cause; Z00.00 Encounter for general adult medical examination without abnormal findings

== ENCOUNTER → 2024-05-28 10:31 | Outpatient (BNVA) | payer MEDICARE, SELFPAY | PROVIDERS: PCP Internal Medicine; Visit Provider Internal Medicine | DX: Z00.00 Encounter for general adult medical examination without abnormal findings (principal); E78.5 Hyperlipidemia, unspecified; L24.9 Irritant contact dermatitis, unspecified cause | CPT/HCPCS: 96127; 99397 ==